=== PATIENT | female | born 1945 | race Caucasian/White ===

== ENCOUNTER → 2016-11-04 | Outpatient (CLI) | payer MEDICARE ==
--- NOTE | 2016-11-04 16:33 | NM ---
EXAMINATION TYPE: NM DatScan Brain SPECT DATE OF EXAM: 11/04/2016 3:49 PM COMPARISON: NONE HISTORY: Memory loss TECHNIQUE: 10 drops of Lugol's solution was administered 1 hour prior to injection as a thyroid bloc alexsander agent. After the administration of 4.6 mCi I-123 Ioflupane DaTscan. Images obtained [address] injection. SPECT images of the brain were acquired with axial and coronal reconstructions. FINDINGS: The axial SPECT images demonstrate normal, shaped uptake within the basal ganglia bilateral ly. Slight asymmetry appears related to head tilt. IMPRESSION: Pattern of uptake appears to be within normal limits. The patient is experiencing symptom s of dementia this would favor Alzheimer's overt generalized dementia or Lewy body dimension. Correla te clinically.
== END | disposition home or self-care (01) ==
LOC: RADNMMAIN 10:26
PROVIDERS: ATTEND Psychiatry & Neurology Neurology
DX: R41.3 Other amnesia (principal)
CPT/HCPCS: 78607; A9584

== ENCOUNTER → 2016-11-19 | Outpatient (CLI) | payer MEDICARE ==
--- NOTE | 2016-11-22 10:52 | XR ---
EXAMINATION TYPE: XR chest 2V DATE OF EXAM: 11/19/2016 3:15 PM COMPARISON: NONE HISTORY: Cough, physical exam TECHNIQUE: Frontal and lateral views of the chest are obtained. FINDINGS: There is no focal air space opacity, pleural effusion, or pneumothorax seen. The cardiac silhouette size is within normal limits. Postop change status post right shoulder arthroplasty note d. There is likely an underlying spinal curvature. Degenerative disc changes in the visualized spine. Increased lung volume may be indicative of COPD. Bronchial wall thickening is noted. The osseous str uctures are intact. IMPRESSION: Consider chronic bronchitis, reactive airways disease
== END ==
LOC: RADXRYALE 15:05
PROVIDERS: ATTEND Internal Medicine
DX: R05 Cough (principal)
CPT/HCPCS: 71020

== ENCOUNTER 2017-09-20 05:18 | Emergency (ER) | payer MEDICARE, OTHER ==
--- NOTE | 2017-09-20 05:58 | ED ---
Upper Extremity HPI - General Chief Complaint: Extremity Injury, Upper Stated Complaint: Wrist fracture Time Seen by Provider: 09/20/17 05:19 Source: patient, EMS Mode of arrival: EMS Limitations: no limitations - History of Present Illness Initial Comments: this patient is a 72-year-old woman transferred from custodial to be evaluated for left wrist injury. The patient reports that on the previous day she had fallen over a wheelchair and struck her wrist. I was reported that there was an x-ray taken which showed a fracture, but we do not have the films available area the patient denies other injury. She declines analgesia at the moment MD Complaint: Injury to:: left, wrist Onset/Timin -: days(s) Other Injuries: none Handedness: right Place: home Worsens With: immobilization Context: fall - Related Data Previous Rx's Medication Instructions Recorded Acetaminophen-Codeine 300-30mg 1 tab PO Q4H PRN #20 tablet 09/20/17 [Tylenol w/codeine #3] Allergies Allergy/AdvReac Type Severity Reaction Status Date / Time No Known Allergies Allergy Verified 09/20/17 05:37 Review of Systems ROS Statement: Those systems with pertinent positive or pertinent negative responses have been documented in the HPI. ROS Other: All systems not noted in ROS Statement are negative. Eyes: Denies: vision change Cardiovascular: Denies: chest pain Gastrointestinal: Denies: abdominal pain Musculoskeletal: Reports: as per HPI, joint swelling, arthralgia. Denies: back pain Neurological: Denies: headache Past Medical History Additional Past Medical History / Comment(s): diverticulitis, anxiety, dementia , depresssion, breast ca, polyarthritis History of Any Multi-Drug Resistant Organisms: None Reported Past Surgical History: Unable to Obtain Past Psychological History: Anxiety, Depression Smoking Status: Former smoker Past Alcohol Use History: None Reported Past Drug Use History: None Reported General Exam Limitations: no limitations General appearance: alert, in no apparent distress Head exam: Present: atraumatic, normocephalic Eye exam: Present: normal appearance. Absent: scleral icterus, conjunctival injection Neck exam: Present: normal inspection, full ROM. Absent: tenderness Respiratory exam: Present: normal lung sounds bilaterally. Absent: respiratory distress, wheezes, rales, rhonchi, stridor, chest wall tenderness Cardiovascular Exam: Present: regular rate, normal rhythm, normal heart sounds. Absent: systolic murmur, diastolic murmur, rubs, gallop GI/Abdominal exam: Present: soft. Absent: distended, tenderness, guarding, rebound Extremities exam: Present: tenderness (dorsum of the left wrist), normal capillary refill Neurological exam: Present: alert Skin exam: Present: warm, dry, intact, normal color. Absent: rash Course Vital Signs 09/20/17 05:30 Temperature 98 F Pulse Rate 78 Respiratory 18 Rate Blood Pressure 114/77 O2 Sat by Pulse 98 Oximetry Disposition Clinical Impression: Triquetral chip fracture Disposition: HOME SELF-CARE Condition: Good Instructions: Wrist Injury (ED) Prescriptions: Acetaminophen-Codeine 300-30mg [Tylenol w/codeine #3] 1 tab PO Q4H PRN #20 tablet PRN Reason: Pain Referrals: Bruna Love MD [Primary Care Provider] - 1-2 days Brandon Cline MD [STAFF PHYSICIAN] - 1-2 days
[2017-09-20] MEDS ORDERED: ACETAMINOPHEN TAB 325 MG TAB PO STA (06:27)
--- NOTE | 2017-09-20 06:49 | XR ---
EXAM: XR Left Wrist Complete, 3 or More Views CLINICAL HISTORY: Reason: Pain TECHNIQUE: Frontal, lateral and oblique views of the left wrist. COMPARISON: No relevant prior studies available. FINDINGS: Patient is wearing a cast which obscures bony detail. Old ununited ulnar styloid fracture noted. Osseous irregularities seen on the dorsal aspect of the first carpal row on the lateral view suspicious for dorsal triquetral fracture. Soft tissue swelling noted about the wrist. IMPRESSION: Findings suspicious for dorsal triquetral fracture. Correlate clinically. Old ununited ulnar styloid process fracture. Diffuse soft tissue swelling about the wrist.
[2017-09-20] MEDS ORDERED: ONDANSETRON ODT 4 MG TAB PO STA (07:38)
[2017-09-20] MEDS ORDERED: MORPHINE SULFATE 2 MG/ML SYRINGE IM STA (07:38)
[2017-09-20 07:54] VITALS: BP 110/57; PULSE 72; RESP 16; TEMP 98
== END 2017-09-20 07:54 | disposition home or self-care (01) ==
LOC: EC 05:18
DX: S62.112A Displaced fracture of triquetrum [cuneiform] bone, left wrist, initial encounter for closed fracture (principal); Z87.891 Personal history of nicotine dependence; W18.09XA Striking against other object with subsequent fall, initial encounter; Y92.009 Unspecified place in unspecified non-institutional (private) residence as the place of occurrence of the external cause
CPT/HCPCS: 73110; 99284; 96372; J2270